=== PATIENT | male | born 1995 | race Caucasian/White ===

== ENCOUNTER 2020-05-27 13:56 | Emergency (ER) | payer OTHER, MEDICAID, SELFPAY ==
[2020-05-27 14:09] VITALS: BP 125/79; PULSE 101; RESP 16; TEMP 37.4; O2SAT 98; BMI 21.2
[2020-05-27 14:26] LABS: Appearance Urine UA CLEAR; Bacteria Urine None Seen; Bilirubin Urine UA NEGATIVE (NEGATIVE); Color Urine UA YELLOW; Glucose Urine UA NEGATIVE (Negative); Ketones Urine UA NEGATIVE (NEGATIVE); Leukocyte Esterase Urine UA NEGATIVE (NEGATIVE); Nitrite Urine UA NEGATIVE (Negative); Occult Blood Urine UA NEGATIVE (Negative); Protein Urine UA NEGATIVE (Negative); RBC Urine None Seen (0-5/HPF); Urobilinogen Urine UA 0.2 E.U./dL (0.2); WBC Urine None Seen (0-5/HPF); pH Urine UA 7.5 (4.5-8.0)
[2020-05-27 14:32] LABS: Culture Indicated Urine Cult Not Indicated; Urine Comments Microscopic Normal
[2020-05-27 14:34] VITALS: BP 135/68
--- NOTE | 2020-05-28 01:03 | ED.SKABFB ---
HPI - Skin/Abscess/Foreign Bdy <RHIANNA Marquez - Last Filed: 05/28/20 01:24> General Chief complaint: Skin/Abscess/Foreign Body Stated complaint: STD Checkup Time Seen by Provider: 05/27/20 13:59 Source: patient Mode of arrival: Ambulatory Limitations: no limitations History of Present Illness HPI narrative: This is a 24-year-old male, occasional smoker, presents to ED with chief complain of small lesion above upper lip which started about a week ago. Patient denies significant discomfort affected site. Patient denies fever, chills, nausea or vomiting. Patient also reports multiple small papules occasionally erupted on his bilateral upper thighs. He states now his girlfriend this lesion on side of face and concerned. Patient denies painful lesions in his genital area. Patient denies unusual penile discharges. According to triage note patient had this lesion for 5 weeks and is here with concerns for STIs. Related Data Previous Rx's Medication Instructions Recorded famciclovir 1,500 mg PO .once #3 tab 05/27/20 mupirocin 1 applictn TOP TID #22 gram 05/27/20 Review of Systems <RHIANNA Marquez - Last Filed: 05/28/20 01:24> Review of Systems Narrative: General: Denies fever, chills, fatigue, malaise, sweats. HEENT: Denies sinus pain, ear pain, sore throat, difficulty swallowing, dizziness. Respiratory: Denies dyspnea, cough, wheezing, hemoptysis, sputum. Cardiovascular: Denies chest pain, palpitations, orthopnea, edema. Gastrointestinal: Denies nausea, vomiting, abdominal pain, diarrhea, constipation, melena. : Denies dysuria, frequency, incontinence, hematuria, urinary retention. Skin: See HPI Patient History <RHIANNA Marquez - Last Filed: 05/28/20 01:24> Medical History (Updated 05/28/20 @ 01:10 by RHIANNA Marquez) No significant past medical history (Acute) Surgical History (Updated 05/28/20 @ 01:10 by RHIANNA Marquez) No pertinent past surgical history (Acute) Social History Smoking Status: Current some day smoker Smoking Status: Current some day smoker alcohol intake frequency: 0-2 drinks per day Substance Use Type: marijuana Exam <Thom NobleRHIANNA - Last Filed: 05/28/20 01:24> Narrative Exam Narrative: General appearance: well developed, well nourished, in no acute distress. Head: normocephalic, atraumatic, no scalp lesions, non-tender. ENT: Hearing grossly intact. Nose without bleeding, purulent discharge. Mucous membrane moist, no mucosal lesion. Throat without erythema, tonsillar hypertrophy or exudate. Uvula in midline, airway patent. Neck/Thyroid: neck supple, full range of motion, no visible masses or meningeal signs. No JVD, non-tender without lymphadenopathy. Skin: Small excoriated lesion with yellowish exudate without surrounding skin with erythema, edema or warmth. Several small yellowish papules in bilateral thigh. No suspicious rashes, lesions over other visible areas. Warm and dry and appropriate color for ethnicity. Heart: no clubbing, no cyanosis, no edema. Lungs: Breathing even and unlabored. No stridor. No accessory muscles used. Able to speak in full sentences. Chest: normal shape and expansion. Abdomen: non-obese, non-distended. Neurologic: alert and oriented. Cognitive exam, [employer] SE[employer] and PNS grossly intact on informal exam. Psych: good eye contact, normal affect. Initial Vital Signs Initial Vital Signs: Vital Signs Temperature 99.3 F 05/27/20 14:09 Pulse Rate 101 H 05/27/20 14:09 Respiratory Rate 16 05/27/20 14:09 Blood Pressure 125/79 05/27/20 14:09 Pulse Oximetry 98 05/27/20 14:09 <Mya Porter DO - Last Filed: 06/01/20 07:33> Initial Vital Signs Initial Vital Signs: Vital Signs Temperature 99.3 F 05/27/20 14:09 Pulse Rate 101 H 05/27/20 14:09 Respiratory Rate 16 05/27/20 14:09 Blood Pressure 125/79 05/27/20 14:09 Pulse Oximetry 98 05/27/20 14:09 Scores <Thom HuizarRHIANNA garcia - Last Filed: 05/28/20 01:24> GCS [place] coma scale eye opening: Spontaneous [place] coma scale verbal response: Orientated [place] coma scale motor response: Obey commands [place] coma scale total score: 15 MDM - Skin/Abscess/Foreign Bdy <RHIANNA Marquez - Last Filed: 05/28/20 01:24> Differential Diagnosis Differential diagnosis: Likely impetigo and other (Folliculitis, oral herpes simplex) Medical Records Attestation: I reviewed the patient's medical records. Lab Data Labs: Lab Results 05/27/20 05/27/20 05/27/20 Range/Units 14:19 14:19 14:19 Urine Color Yellow Urine Appearance Clear Urine pH 7.5 (4.5-8.0) Ur Specific [place] 1.010 (1.000-1.035) Urine Protein Negative (Negative) Urine Glucose (UA) Negative (Negative) g/dL Urine Ketones Negative (NEGATIVE) Urine Occult Blood Negative (Negative) Urine Nitrate Negative (Negative) Urine Bilirubin Negative (NEGATIVE) Urine Urobilinogen 0.2 (0.2) E.U./dL Ur Leukocyte Esterase Negative (NEGATIVE) Urine RBC None seen (0-5/HPF) Urine WBC None seen (0-5/HPF) Urine Bacteria None seen (None) Ur Culture Indicated? Cult not indicated Micro UA Comment Microscopic normal Ur Chlamydia DNA (PCR) Cancelled N gonorrhoeae DNA (PCR) Cancelled Ref Test (Refrig) Comment (.) [facility] Narrative Medical decision making narrative: Patient has a small yellowish lesion on philtrum for at least a week. Constitutional symptoms. No purulent discharge. No obvious signs of cellulitis. This lesion may started as HSV oral lesion with localized infection. Considred impetigo as an differential. Patient discharged to home with mupirocin ointment to use affected side. Patient also reports bilateral upper leg papules which appears to be folliculitis. Patient advised to keep these lesions clean with antibacterial soap and dry and apply mupirocin 3 to 4 times a day as needed on affected side. Patient reports if sore cold sores recurs next time to use famciclovir 1500 mg orally once within 72 hours of onset of rash and written prescriptions provided. Return precautions were discussed with patient and patient verbalized understanding in agreement with the treatment plan. <Mya Porter DO - Last Filed: 06/01/20 07:33> Lab Data Labs: Lab Results 05/27/20 05/27/20 05/27/20 Range/Units 14:19 14:19 14:19 Urine Color Yellow Urine Appearance Clear Urine pH 7.5 (4.5-8.0) Ur Specific [place] 1.010 (1.000-1.035) Urine Protein Negative (Negative) Urine Glucose (UA) Negative (Negative) g/dL Urine Ketones Negative (NEGATIVE) Urine Occult Blood Negative (Negative) Urine Nitrate Negative (Negative) Urine Bilirubin Negative (NEGATIVE) Urine Urobilinogen 0.2 (0.2) E.U./dL Ur Leukocyte Esterase Negative (NEGATIVE) Urine RBC None seen (0-5/HPF) Urine WBC None seen (0-5/HPF) Urine Bacteria None seen (None) Ur Culture Indicated? Cult not indicated Micro UA Comment Microscopic normal Ur Chlamydia DNA (PCR) Cancelled N gonorrhoeae DNA (PCR) Cancelled Ref Test (Refrig) Comment (.) Discharge Plan Departure Patient Disposition: Home Clinical Impression: Oral herpes, Folliculitis Discharge Date/Time: 05/27/20 15:03 Instructions: Cold Sores, DI for Folliculitis Activity Restrictions/Additional Instructions: You have been diagnosed with [oral lesion likely from oral herpes, folliculitis in bilateral legs.]. What to do: *Take your medications as directed. Please use mupirocin antibiotic ointment 3 times a day. Keep the wound clean and dry. Please do not pick on it. You can take famciclovir will as a 1 time dose if oral lesion/cold sore recurs next time within 72 hour from the eruption. *Follow up with your primary care provider in 2-3 days, call for an appointment. Let them know you were seen in the ED and that we asked you to be seen in follow up. *Return to ED if you have any new, worsening, or concerning symptoms, such as [increasing redness, warmth, swelling, pain, fever, or any acute concerns]. Prescriptions: New mupirocin 2 % ointment 1 applictn TOP TID Qty: 22 RF: 0 famciclovir 500 mg tablet 1,500 mg PO .once Qty: 3 RF: 0 <Mya Porter, DO - Last Filed: 06/01/20 07:33> Cosign ED Attending Victor M Attestation: I was immediately available in the department for consultation. Documentation has been reviewed. I agree with assessment and plan.
== END 2020-05-27 15:03 | disposition home or self-care (01) ==
PROVIDERS: Emergency Provider Nurse Practitioner Family
DX: B00.2 Herpesviral gingivostomatitis and pharyngotonsillitis (principal); L73.9 Follicular disorder, unspecified
CPT/HCPCS: 81001; 87491; 87591; 99282; 99283

== ENCOUNTER 2020-06-14 15:46 | Emergency (ER) | payer OTHER, MEDICAID, SELFPAY ==
[2020-06-14 15:52] VITALS: BP 132/76; PULSE 82; RESP 14; TEMP 36.3; O2SAT 98; BMI 19.3
--- NOTE | 2020-06-14 17:57 | ED_ITS ---
HPI - Dental/Oral <MARIA DEL CARMEN Mcknight - Last Filed: 06/14/20 18:01> General Chief complaint: Dental/Oral Stated complaint: states tooth infection Time Seen by Provider: 06/14/20 16:03 Source: patient Mode of arrival: Ambulatory Limitations: no limitations History of Present Illness HPI Narrative: The patient is a 24-year-old male current some day smoker who presents with a chief complaint of a dental infection. He states that his right posterior lower wisdom tooth is infected, he was supposed to have a pulled several months ago but he was unable to have it done given the coronavirus pandemic. He denies any fevers nausea vomiting or diarrhea. However he states that his right, along his right lower wisdom tooth is painful, red and swollen. He has tried ibuprofen for pain, which states is working well for the pain. He has an appointment with a dentist on Wednesday, but he would like antibiotics if needed before the dentist. Related Data Previous Rx's Medication Instructions Recorded famciclovir 1,500 mg PO .once #3 tab 05/27/20 mupirocin 1 applictn TOP TID #22 gram 05/27/20 penicillin V potassium 500 mg PO TID #30 tab 06/14/20 Allergies Allergy/AdvReac Type Severity Reaction Status Date / Time No Known Drug Allergies Allergy Verified 06/14/20 15:52 Review of Systems <MARIA DEL CARMEN Mcknight - Last Filed: 06/14/20 18:01> Review of Systems Narrative: GENERAL: Denies chills, fatigue, malaise, fever, sweats. HEENT: See HPI RESPIRATORY: Denies dyspnea, cough, wheezing, hemoptysis, sputum. CARDIOVASCULAR: Denies chest pain, palpitations, orthopnea, edema, GASTROINTESTINAL: Denies nausea, vomiting, abdominal pain, diarrhea, constipation, melena. : Denies dysuria, frequency, incontinence, hematuria, urinary retention. MUSCULOSKELETAL: denies weakness, joint pain, or bony pain SKIN: Denies rash, skin lesions, or other NEUROLOGIC: Denies weakness, headache, numbness, change in speech, confusion, seizures, incoordination. PSYCHIATRIC: No concerning psychosocial issues. 12 point review of systems is negative except for those stated above Patient History <HOA Mcknight - Last Filed: 06/14/20 18:01> Medical History No significant past medical history (Acute) Surgical History No pertinent past surgical history (Acute) Social History Smoking Status: Current some day smoker Smoking Status: Current some day smoker alcohol intake frequency: holidays/special occasions only Substance Use Type: marijuana Exam <HOA Mcknight - Last Filed: 06/14/20 18:01> Narrative Exam Narrative: GENERAL: This is a well-nourished, well-developed patient, in no acute distress HEAD: Atraumatic. Normocephalic. No temporal or scalp tenderness. EYES: Pupils equal round and reactive. Extraocular motions intact. No scleral icterus. No injection or drainage. ENT: Nose without bleeding, purulent drainage or septal hematoma. Throat without erythema, tonsillar hypertrophy or exudate. Uvula midline. Airway patent. Poor dentition noted. Erythema and swelling noted her right posterior lower gum line, painful to palpation. No palpable fluctuance or abscess. NECK: Trachea midline. No JVD or lymphadenopathy. Supple, nontender, no meningeal signs. CARDIOVASCULAR: Regular rate and rhythm RESPIRATORY: Clear to auscultation. Breath sounds equal bilaterally. No wheezes, rales, or rhonchi. No cough. No increased respiratory effort. No accessory muscle use. GASTROINTESTINAL: Abdomen soft, non-tender, nondistended. No hepato- splenomegaly, or palpable masses. No guarding. NEURO: AOx3. Stable gait. No gross cranial nerve deficit. SKIN: No rash or erythema on visible skin Initial Vital Signs Initial Vital Signs: Vital Signs Temperature 97.3 F L 06/14/20 15:52 Pulse Rate 82 06/14/20 15:52 Respiratory Rate 14 06/14/20 15:52 Blood Pressure 132/76 06/14/20 15:52 Pulse Oximetry 98 06/14/20 15:52 <Mya Porter DO - Last Filed: 06/16/20 07:09> Initial Vital Signs Initial Vital Signs: Vital Signs Temperature 97.3 F L 06/14/20 15:52 Pulse Rate 82 06/14/20 15:52 Respiratory Rate 14 06/14/20 15:52 Blood Pressure 132/76 06/14/20 15:52 Pulse Oximetry 98 06/14/20 15:52 Scores <MARIA DEL CARMEN McknightBC - Last Filed: 06/14/20 18:01> GCS [place] coma scale eye opening: Spontaneous [place] coma scale verbal response: Orientated [place] coma scale motor response: Obey commands [place] coma scale total score: 15 Course <MARIA DEL CARMEN McknightBC - Last Filed: 06/14/20 18:01> Vital Signs Vital signs: Vital Signs - 8 hr 06/14/20 15:52 Temperature 97.3 F L Pulse Rate 82 Respiratory Rate 14 Blood Pressure 132/76 Pulse Oximetry 98 <Mya Porter DO - Last Filed: 06/16/20 07:09> Vital Signs Vital signs: Vital Signs - 8 hr 06/14/20 15:52 Temperature 97.3 F L Pulse Rate 82 Respiratory Rate 14 Blood Pressure 132/76 Pulse Oximetry 98 MDM - Dental/Oral <MARGARET Mcknight-BC - Last Filed: 06/14/20 18:01> MDM Narrative Medical decision making narrative: The patient is a 24-year-old male who presents with a chief complaint of a dental infection. Exam correlates with suspicion. Pain is well controlled with ibuprofen, so we will hold off on stronger pain medications for now. The patient was started on penicillin. Encouraged dental follow-up as scheduled on Wednesday. Discussed taking with antibiotic a probiotic or yogurt. Patient has no questions or concerns upon discharge and states understanding return precautions of any acute concerns or inability keep down fluids as well as follow-up care with dentist and PCP. Patient is hemodynamically stable with no signs of systemic illness throughout his stay in the ER. Discharge Plan Departure Patient Disposition: Home Clinical Impression: Dental infection Discharge Date/Time: 06/14/20 17:03 Instructions: Tooth Abscess, DI for Dental Pain Activity Restrictions/Additional Instructions: Thank you for trusting us with your care today. I sent a prescription of penicillin to [facility] in [place] for your dental infection. Please take this with probiotic or yogurt to help prevent antibiotic associated diarrhea. Please follow-up with your dentist as scheduled on Wednesday. Please come back to the emergency department for any acute concerns such as inability keep down fluids etcetera Prescriptions: New penicillin V potassium 500 mg tablet 500 mg PO TID Qty: 30 RF: 0 No Action mupirocin 2 % ointment 1 applictn TOP TID Qty: 22 RF: 0 famciclovir 500 mg tablet 1,500 mg PO .once Qty: 3 RF: 0 Referrals: [facility] [Outside] <Mya Porter, - Last Filed: 06/16/20 07:09> [facility] Attestation: I was immediately available in the department for consultation. Documentation has been reviewed. I agree with assessment and plan.
== END 2020-06-14 17:03 | disposition home or self-care (01) ==
PROVIDERS: Emergency Provider Nurse Practitioner Family
DX: K04.7 Periapical abscess without sinus (principal)
CPT/HCPCS: 99281